=== PATIENT | male | born 1985 | race Caucasian/White ===

== ENCOUNTER 2018-08-07 18:23 | Emergency (ER) | payer BC ==
[2018-08-07 18:28] VITALS: BP 131/80; PULSE 54; RESP 18; TEMP 98.1
[2018-08-07] MEDS ORDERED: KETOROLAC 60 MG/2 ML VIAL IM STA (18:41)
--- NOTE | 2018-08-07 18:46 | ED ---
General Adult HPI - General Chief complaint: Back Pain/Injury Stated complaint: back pain Time Seen by Provider: 08/07/18 18:30 Source: patient, RN notes reviewed, old records reviewed Mode of arrival: ambulatory Limitations: no limitations - History of Present Illness Initial comments: 33-year-old male patient past medical history of anxiety, hypertension comes to ED with approximately 3 days of lumbar back pain. Patient reports that approximately one month ago while playing recreational hockey leak suffered a lumbar back strain, states that the pain improved until approximately 3 days ago. Patient states that 3 days. He began experiencing midline lumbar back pain that radiates down posterior with his legs down to his feet. Patient reports that yesterday he went to the chiropractor for adjustment, did not express any relief of his pain. Patient is ambulatory without difficulty. Patient denies any new onset weakness in his lower extremities. Patient denies saddle anesthesia, loss of bowel or bladder control. Patient denies any paresthesias. Patient denies all other symptoms, patient denies chest pain, shortness breath, abdominal pain, nausea vomiting diarrhea. Systemic: Pt denies fatigue, fever/chills, rash. Pt denies weakness, night sweats, weight loss. Neuro: Pt denies headache, visual disturbances, syncope or pre-syncope. HEENT: Pt denies ocular discharge or irritation, otalgia, rhinorrhea, pharyngitis or notable lymphadenopathy. Cardiopulmonary: Pt denies chest pain, SOB, heart palpitations, dyspnea on exertion. Abdominal/GI: Pt denies abdominal pain, n/v/d. : Pt denies dysuria, burning w/ urination, frequency/urgency. Denies new onset urinary or bowel incontinence. MSK: Pt denies loss of strength or function in extremities. Neuro: Pt denies new onset weakness, paresthesias. - Related Data Previous Rx's Medication Instructions Recorded Cyclobenzaprine [Flexeril] 1 - 2 tab PO TID #20 tablet 08/07/18 Ibuprofen [Motrin] 600 mg PO Q6HR PRN #40 day 08/07/18 predniSONE 50 mg PO DAILY #5 tab 08/07/18 Allergies Allergy/AdvReac Type Severity Reaction Status Date / Time No Known Allergies Allergy Verified 08/07/18 18:28 Review of Systems ROS Statement: Those systems with pertinent positive or pertinent negative responses have been documented in the HPI. ROS Other: All systems not noted in ROS Statement are negative. Past Medical History Past Medical History: Hypertension History of Any Multi-Drug Resistant Organisms: None Reported Past Surgical History: No Surgical Hx Reported Past Psychological History: No Psychological Hx Reported Smoking Status: Current every day smoker Past Alcohol Use History: Occasional Past Drug Use History: None Reported General Exam - General Exam Comments Initial Comments: Constitutional: NAD, AOX3, Pt has pleasant affect. HEENT: NC/AT, trachea midline, neck supple, no lymphadenopathy. Posterior pharynx non erythematous, without exudates. External ears appear normal, without discharge. Mucous membranes moist. Eyes PERRLA, EOM intact. There is no scleral icterus. No pallor noted. Cardiopulmonary: RRR, no murmurs, rubs or gallops, no JVD noted. Lungs CTAB in anterior and posterior zamora. No peripheral edema. Abdominal exam: Abdomen soft and non-distended. Abdomen non-tender to palpation in all 4 quadrants. Bowel sounds active in LLQ. No hepatosplenomegaly. No ecchymosis Neuro: CN II-XII grossly intact. No nuchal rigidity. MSK: No midline or para cervical or thoracic tenderness. Mild midline tenderness to palpation of lumbar spine. No paralumbar tenderness. 5/5 strength of psoas or quadriceps muscles. Patellar and achillies reflex +2 bilaterally. Radial pulse +2 bilaterally. Straight leg raise positive bilaterally. No posterior calf tenderness bilaterally, homans sign negative bilaterally. Posterior tibialis and radial pulse +2 bilaterally. Sensation intact in upper and lower extremities. Full active ROM in upper and lower extremities, 5/5 stregnth. Heel to toe walking intact. Rectal: Normal rectal tone. Limitations: no limitations Course Vital Signs 08/07/18 18:24 Temperature 98.1 F Pulse Rate 54 L Respiratory 18 Rate Blood Pressure 131/80 O2 Sat by Pulse 97 Oximetry Medical Decision Making - Medical Decision Making 33-year-old male patient past medical history of anxiety, hypertension comes to ED with approximately 3 days of lumbar back pain. Patient reports that approximately one month ago while playing recreational hockey leak suffered a lumbar back strain, states that the pain improved until approximately 3 days ago. Patient states that 3 days. He began experiencing midline lumbar back pain that radiates down posterior with his legs down to his feet. Patient reports that yesterday he went to the chiropractor for adjustment, did not express any relief of his pain. Patient is ambulatory without difficulty. Patient denies any new onset weakness in his lower extremities. Patient has saddle anesthesia, loss of bowel or bladder control. Patient denies any paresthesias. Patient denies all other symptoms, patient denies chest pain, shortness breath, abdominal pain, nausea vomiting diarrhea. Pt VSS, afebrile. Physical exam displayed: No midline or para cervical or thoracic tenderness. Mild midline tenderness to palpation of lumbar spine. No paralumbar tenderness. 5/5 strength of psoas or quadriceps muscles. Patellar and achillies reflex +2 bilaterally. Radial pulse +2 bilaterally. Straight leg raise positive bilaterally. No posterior calf tenderness bilaterally, homans sign negative bilaterally. Posterior tibialis and radial pulse +2 bilaterally. Sensation intact in upper and lower extremities. Full active ROM in upper and lower extremities, 5/5 stregnth. Heel to toe walking intact. Normal rectal tone. Noncontrast CT of lumbar spine displayed mild to moderate posterior central L4- L5 disc herniation. There is no significant spinal stenosis. UA was not impressive. Findings explained patient at length. Patient improved with Toradol administration. Patient to be prescribed prednisone, Flexeril, ibuprofen outpatient. Patient to follow-up with orthospine tomorrow. Patient follow up with primary care provider tomorrow. Patient to return to ED if new signs or symptoms develop or if condition worsens in any way. Case discussed in depth with Dr. Uribe. - Lab Data Lab Results 08/07/18 Range/Units 18:48 Urine Color Yellow Urine Appearance Clear (Clear) Urine pH 5.5 (5.0-8.0) Ur Specific [place] 1.023 (1.001-1.035) Urine Protein Negative (Negative) Urine Glucose (UA) Negative (Negative) Urine Ketones Negative (Negative) Urine Blood Negative (Negative) Urine Nitrite Negative (Negative) Urine Bilirubin Negative (Negative) Urine Urobilinogen <2.0 (<2.0) mg/dL Ur Leukocyte Esterase Negative (Negative) Disposition Clinical Impression: Lumbar back pain Disposition: HOME SELF-CARE Condition: Stable Instructions (If sedation given, give patient instructions): Acute Low Back Pain (ED) Additional Instructions: Patient to adhere to previously discussed treatment plan and will take medication(s) as directed. Patient to follow up with PCP in 1-2 days. Patient to return to ED if symptoms do not improve. Prescriptions: Cyclobenzaprine [Flexeril] 1 - 2 tab PO TID #20 tablet Ibuprofen [Motrin] 600 mg PO Q6HR PRN #40 day PRN Reason: Pain predniSONE 50 mg PO DAILY #5 tab Is patient prescribed a controlled substance at d/c from ED?: No Referrals: Jose L Osorio MD [Primary Care Provider] - 1-2 days Quiana Graves DO [Doctor of Osteopathic Medicine] - 1-2 days Time of Disposition: 19:52
--- NOTE | 2018-08-07 19:17 | CT ---
EXAMINATION TYPE: CT lumbar spine wo con DATE OF EXAM: 08/07/2018 7:00 PM COMPARISON: None HISTORY: low back pain X 1 [address] DLP: 1017 mGycm Automated exposure control for dose reduction was used. Unenhanced CT of the lumbar spine was performed. Bone and soft tissue window settings are submitted as well as coronal and sagittal reconstructions. The lumbar vertebra have normal spacing and alignment. Posterior elements are intact. There is no com pression fracture. There is no lumbar paraspinal mass. There is posterior central disc herniation at L4-5 and mild narrowing of the spinal canal. There is no significant spinal stenosis. Sacroiliac join ts appear intact. I see no focal bone destruction. IMPRESSION: No fracture. Mild to moderate posterior central L4-5 lumbar disc herniation.
[2018-08-07 19:20] LABS: Appearance,Urine Clear (Clear); Bilirubin,Urine Negative (Negative); Blood,Urine Negative (Negative); Color,Urine Yellow; Glucose,Urine (UA) Negative (Negative); Ketones,Urine Negative (Negative); Leukocyte Esterase,Urine Negative (Negative); Nitrite,Urine Negative (Negative); PH, Urine 5.5 (5.0-8.0); Protein,Urine Negative (Negative); Specific Gravity,Urine 1.023 (1.001-1.035); Urobilinogen,Urine <2.0 mg/dL (<2.0)
== END 2018-08-07 20:03 | disposition home or self-care (01) ==
LOC: EC 18:23
DX: M54.5 Low back pain (principal); M51.26 Other intervertebral disc displacement, lumbar region; F17.200 Nicotine dependence, unspecified, uncomplicated
CPT/HCPCS: 81003; 72131; 99284; 96372; J1885

== ENCOUNTER → 2020-09-24 | Outpatient (CLI) | payer BC ==
--- NOTE | 2020-09-24 16:30 | XR ---
EXAMINATION TYPE: XR chest 2V DATE OF EXAM: 09/24/2020 COMPARISON: None INDICATION: Fever, cough TECHNIQUE: Frontal and lateral views of the chest are obtained. FINDINGS: The heart size is normal. The pulmonary vasculature is normal. The lungs are clear. IMPRESSION: 1. No acute pulmonary process.
== END ==
LOC: RADXRMAIN 10:01
PROVIDERS: ATTEND Internal Medicine
DX: R05 Cough (principal)
CPT/HCPCS: 71046

== ENCOUNTER → 2023-10-03 | Outpatient (CLI) | payer BC ==
[2023-10-03 15:45] LABS: Basophils # (A) 0.02 X 10*3/uL (0.00-0.10); Basophils % (A) 0.4 %; Eosinophils # (A) 0.15 X 10*3/uL (0.04-0.35); Eosinophils % (A) 2.7 %; HCT 43.1 % (39.6-50.0); HGB 14.7 g/dL (13.0-17.0); Lymphocytes # (A) 1.59 X 10*3/uL (0.90-5.00); Lymphocytes % (A) 28.3 %; MCH 29.5 pg (27.0-32.0); MCHC 34.1 g/dL (32.0-37.0); MCV 86.5 FL (80.0-97.0); Mean Platelet Volume 12.2 FL (9.5-12.2); Monocytes # (A) 0.55 X 10*3/uL (0.20-1.00); Monocytes % (A) 9.8 %; NRBC Per 100 WBC 0 X 10*3/uL (0.00-0.01); Neutrophils % (A) 58.6 %; Platelet Count 198 X 10*3/uL (140-440); RBC 4.98 X 10*6/uL (4.40-5.60); RDW 11.7 % (11.5-14.5); WBC 5.62 X 10*3/uL (4.50-10.00)
[2023-10-03 16:14] LABS: Blood Urea Nitrogen 14.3 mg/dL (9.0-27.0); Chol/HDL Ratio 4.03 Ratio; Glucose 95 mg/dL (70-110); LDL Cholesterol,Calculated 61.6 mg/dL (0.0-131.0)
[2023-10-03 16:15] LABS: ALT 53 U/L (10-49); AST 32 U/L (14-35); Albumin 4.8 g/dL (3.8-4.9); Albumin/Globulin Ratio 2.09 Ratio (1.60-3.17); Alkaline Phosphatase 101 U/L (41-126); Calcium 9.8 mg/dL (8.7-10.3); Carbon Dioxide 25.1 mmol/L (21.6-31.8); Chloride 106 mmol/L (96-109); Globulin 2.3 g/dL (1.6-3.3); Potassium 4.3 mmol/L (3.5-5.5); Sodium 142 mmol/L (135-145); Total Bilirubin 0.5 mg/dL (0.3-1.2); Total Protein 7.1 g/dL (6.2-8.2)
== END | disposition home or self-care (01) ==
LOC: LABWHC1 09:01
PROVIDERS: ATTEND Student in an Organized Health Care Education/Training Program
DX: I10 Essential (primary) hypertension (principal); E78.5 Hyperlipidemia, unspecified
CPT/HCPCS: 36415; 80053; 80061; 85025